=== PATIENT | female | born 1960 | race Caucasian/White ===

== ENCOUNTER 2023-02-17 13:47 | Outpatient (OUT) | payer OTHER, SELFPAY ==
--- NOTE | 2023-02-17 13:52 | MM_ITS ---
Patient Name: JCARLOS SMITH MR#: [id number] : 1960 Exam Date: 02/17/2023 Ordering Doctor: DR Darinel Gandhi . RADIOLOGY REPORT PROCEDURE: MM TOMOSYNTHESIS SCREENING BI COMPARISON: MG MAMM DX 3D RT CAD, 01/28/2022. MG MAMM SCREEN 3D LOLA CAD, 09/08/2021. MG MAMM SCREEN 3D LOLA CAD, 08/12/2020. MG MAMM SCREEN LOLA W CAD, 06/28/2019. INDICATIONS: Screening Calculator Name NCI Breast Cancer Risk Assessment Tool 5 Year Breast Cancer Risk Not Reported. Lifetime Breast Cancer Risk Not Reported. Personal Breast Cancer No Personal Ovarian Cancer No Treatments None Family Cancers None LOCATION: [facility] BREAST COMPOSITION: Extremely dense, which lowers the sensitivity of mammography. FINDINGS: DIAGNOSTIC CATEGORY 1--NEGATIVE. RIGHT BREAST: No significant suspicious finding. No significant change has occurred. LEFT BREAST: No significant suspicious finding. No significant change has occurred. RECOMMENDATIONS: ROUTINE MAMMOGRAM AND CLINICAL EVALUATION IN 12 MONTHS. PLEASE NOTE: A NORMAL MAMMOGRAM DOES NOT EXCLUDE THE POSSIBILITY OF BREAST CANCER. A CLINICALLY SUSPICIOUS PALPABLE LUMP SHOULD BE BIOPSIED. Dictated by: Humphrey Smith M.D. on 02/18/2023 at 11:38 Approved by: Humphrey Smith M.D. on 02/18/2023 at 11:40
== END 2023-02-17 13:48 | disposition home or self-care (01) ==
LOC: MAMMO 13:47
PROVIDERS: PCP Family Medicine; Visit Provider Obstetrics & Gynecology
DX: Z12.31 Encounter for screening mammogram for malignant neoplasm of breast (principal)
CPT/HCPCS: 77063; 77067

== ENCOUNTER 2023-06-08 10:57 | Outpatient (OUT) | payer OTHER, SELFPAY ==
--- NOTE | 2023-06-08 10:59 | US_ITS ---
The [address] [address] Patient Name: JCARLOS SMITH MRN: [id number] date: 1960 Sex: F Assigned Patient Location: US Current Patient Location: US Accession/Order Number: [id number] Exam Date: 06/08/2023 11:05 Report Date: 06/08/2023 12:22 At the request of: MIMA DARBY Procedure: US pelvis w/ transvaginal EXAMINATION: US pelvis w/ transvaginal HISTORY: complex ovarian cyst N83.299 COMPARISON: 02/03/2021 FINDINGS: Transabdominal and transvaginal images The uterus is normal in size, contour and echotexture, anteverted. Uterus measures 8.0 x 4.8 x 3.5 cm. Endometrium measures 3 mm, normal. Multiple areas of anechoic echogenicity and hypodensity in the cervix likely cysts and/or calcifications Soft tissue identified in the right adnexa measuring 5.7 x 3.2 x 3.4 cm, this contains vascular flow The left ovary measures 1.7 x 2.1 x 1.4 cm seen on transabdominal only images. No free fluid US/US pelvis w/ transvaginal IMPRESSION: 5.7 cm right adnexal soft tissue mass, grossly stable from the prior CT exam. Unknown etiology. Malignancy is not excluded Electronically authenticated by: KAISER YIP Date: 06/08/2023 12:22
[2023-06-08 13:13] LABS: Lactate Dehydrogenase 164 U/L (81-234)
[2023-06-09 04:07] LABS: AFP, Serum, Tumor Marker 6.4 ng/mL (0.0-9.2); CEA 0.9 ng/mL (0.0-4.7); Cancer Antigen (CA) 125 8.3 U/mL (0.0-38.1); HCG Tumor Marker <1 mIU/mL (.)
== END 2023-06-08 10:58 | disposition home or self-care (01) ==
LOC: US 10:57
PROVIDERS: PCP Family Medicine; Visit Provider Obstetrics & Gynecology
DX: N83.299 Other ovarian cyst, unspecified side (principal)
CPT/HCPCS: 36415; 76830; 76856; 82105; 82378; 83615; 84702; 86304

== ENCOUNTER 2023-07-13 15:22 | Outpatient (REF) | payer OTHER, SELFPAY | END 2023-07-13 15:23 | disposition home or self-care (01) | LOC: LAB 15:22 | PROVIDERS: PCP Family Medicine; Visit Provider Obstetrics & Gynecology | DX: N84.1 Polyp of cervix uteri (principal) | CPT/HCPCS: 88305 ==

== ENCOUNTER 2023-08-01 14:24 | Outpatient (OUT) | payer OTHER, SELFPAY ==
--- NOTE | 2023-08-01 14:30 | ECG_ITS ---
The [facility] [place] Test Date: 2023-08-01 Pat Name: JCARLOS SMITH Department: Room: - Gender: Female [employer]ber [employer] Tender: : 1960 Requested By: MIMA DARBY Order Number: [id number] Reading MD: LIZA VELÁZQUEZ Measurements Intervals [place] Rate: 67 P: 67 RI: 188 QRS: 72 QRSD: 93 T: 58 QT: 379 QTc: 403 Interpretive Statements SINUS RHYTHM Compared to ECG 05/17/2019 14:13:58 Sinus tachycardia no longer present Electronically Signed On 08-02-2023 18:01:42 EDT by LIZA VELÁZQUEZ
[2023-08-01 15:24] LABS: Basophils Percent Auto 0.6 % (0.2-2.0); Eosinophils Absolute Auto 0.1 10^3/uL (0.0-0.7); Hematocrit 37.2 % (36.0-48.0); Hemoglobin 12.3 g/dL (12.0-16.0); Lymphocytes Absolute Auto 2.2 10^3/uL (1.2-3.8); Mean Corpuscular HGB Conc 33.1 g/dL (29.9-35.2); Mean Corpuscular Volume 96.9 fL (81.0-99.0); Mean Platelet Volume 9.1 fL (9.5-13.5); Monocytes Absolute Auto 0.4 10^3/uL (0.3-0.8); Monocytes Percent Auto 7.3 % (1.7-12.0); Neutrophils Absolute Auto 2.3 10^3/uL (1.4-6.5); Neutrophils Percent Auto 46.1 % (43.0-75.0); Platelet Count 197 10^3/uL (150-450); Red Blood Count 3.84 10^6/uL (4.20-5.40); Red Cell Distribution Width 12.3 % (11.0-15.0); White Blood Count 4.9 10^3/uL (4.0-11.0)
[2023-08-01 15:41] LABS: INR 0.97; Prothrombin Time 10.3 sec (9.0-11.6)
[2023-08-01 15:48] LABS: Anion Gap 11.9; BUN Creatinine Ratio 23.9; Calcium 9.3 mg/dL (8.5-10.1); Carbon Dioxide 32.8 mmol/L (21.0-32.0); Chloride 103 mmol/L (98-107); Estimated GFR (African America >60 (>=60); Estimated GFR (Non-African Ame >60 (>=60); Glucose 128 mg/dL (74-106); Potassium 3.7 mmol/L (3.5-5.1); Sodium 144 mmol/L (136-145)
[2023-08-01 15:55] LABS: Alanine Aminotransferase 17 U/L (14-59); Albumin Globulin Ratio 1.2; Albumin Level 3.5 g/dL (3.4-5.0); Alkaline Phosphatase 65 U/L (46-116); Aspartate Amino Transferase 10 U/L (15-37); Bilirubin Direct 0.1 mg/dL (0.0-0.2); Bilirubin Total 0.2 mg/dL (0.2-1.0); Total Protein 6.5 g/dL (6.4-8.2)
== END 2023-08-01 14:25 | disposition home or self-care (01) ==
LOC: PST 14:24
PROVIDERS: PCP Family Medicine; Visit Provider Obstetrics & Gynecology
DX: Z01.810 Encounter for preprocedural cardiovascular examination (principal); Z01.812 Encounter for preprocedural laboratory examination; N92.0 Excessive and frequent menstruation with regular cycle; R10.2 Pelvic and perineal pain; N94.6 Dysmenorrhea, unspecified; N94.10 Unspecified dyspareunia; N94.89 Other specified conditions associated with female genital organs and menstrual cycle; N83.8 Other noninflammatory disorders of ovary, fallopian tube and broad ligament
CPT/HCPCS: 36415; 80048; 80076; 85025; 85610; 85730; 93005

== ENCOUNTER 2023-08-09 12:19 | Outpatient (OUT) | payer OTHER, SELFPAY | END 2023-08-09 12:20 | disposition home or self-care (01) | LOC: LAB 08-10 12:20 | PROVIDERS: PCP Family Medicine; Visit Provider Obstetrics & Gynecology | DX: Z01.812 Encounter for preprocedural laboratory examination (principal); N92.0 Excessive and frequent menstruation with regular cycle; R10.2 Pelvic and perineal pain; N94.6 Dysmenorrhea, unspecified; N94.10 Unspecified dyspareunia; N94.89 Other specified conditions associated with female genital organs and menstrual cycle; N83.9 Noninflammatory disorder of ovary, fallopian tube and broad ligament, unspecified | CPT/HCPCS: 36415; 86850; 86900; 86901 ==

== ENCOUNTER 2023-08-11 11:03 | Day surgery (SDC) | payer OTHER, SELFPAY ==
[2023-08-01 15:03] VITALS: BP 126/72; PULSE 80; TEMP 36.3; O2SAT 98; BMI 23.6
[2023-08-11] VITALS (12 sets, daily range): BP systolic 100–131; BP diastolic 52–72; PULSE 63–96; TEMP 35.6–36.4; O2SAT 92–98; BMI 22.6
[2023-08-11 11:37] LABS: Basophils Percent Auto 0.5 % (0.2-2.0); Eosinophils Absolute Auto 0.1 10^3/uL (0.0-0.7); Eosinophils Percent Auto 2.2 % (0.9-7.0); Hematocrit 40.7 % (36.0-48.0); Hemoglobin 13.1 g/dL (12.0-16.0); Immature Granulocytes Abs Auto 0.01 10^3/uL (0.00-0.03); Immature Granulocytes Pct Auto 0.2 % (0.0-0.5); Lymphocytes Absolute Auto 1.8 10^3/uL (1.2-3.8); Lymphocytes Percent Auto 44.9 % (20.5-60.0); Mean Corpuscular HGB Conc 32.2 g/dL (29.9-35.2); Mean Corpuscular Hemoglobin 31.2 pg (26.7-34.0); Mean Corpuscular Volume 96.9 fL (81.0-99.0); Mean Platelet Volume 9.2 fL (9.5-13.5); Monocytes Absolute Auto 0.4 10^3/uL (0.3-0.8); Neutrophils Absolute Auto 1.7 10^3/uL (1.4-6.5); Neutrophils Percent Auto 43.2 % (43.0-75.0); Platelet Count 195 10^3/uL (150-450); Red Cell Distribution Width 12.3 % (11.0-15.0)
[2023-08-11] MEDS: LACTATED RINGER'S SOLUTION 1,000 ML 50 ML IV ×2 (11:39→13:40)
[2023-08-11] MEDS: CEFAZOLIN SODIUM/DEXTROSE,ISO 2 GM/50 ML PIGGYBACK IV ×3 (12:41→23:03)
--- NOTE | 2023-08-11 15:42 | PM.ONB ---
Brief Operative Note Date of procedure: 08/11/23 Pre-op diagnosis general: rt adnexal mass, dysmenorrhea, dyspareunia, penduculated uterine fibroid Post-op diagnosis: same as pre-op Procedure: NAME OF PROCEDURE: ? Robotic assisted laparoscopic hysterectomy with cystoscopy, bilateral salpingoopherectomy PROCEDURE:? The patient was taken back to the operating room, where she was prepped and draped in the normal sterile fashion after being placed in the dorsal lithotomy position.? Patient?s anesthesia was found to be adequate.? Surgical timeout was performed using two patient identifiers.? SCDs were on and in place.? Two grams of Ancef were given prior to the surgery.? Sterile Bradshaw catheter was inserted.? Standard size VCare was secured to the uterine cervix and the surgeon changed gloves.? Attention then was turned to the patient's abdomen, where a supraumbilical incision was then made.? Two S retractors were used to identify the patient?s fascia.? The fascia was then tented up using Julee clamps and the patient?s fascia was incised sharply.? Patient?s abdomen was identified and entered bluntly.? The patient had the trocar placed and a pneumoperitoneum was obtained.? Approximately 4 liters of CO2 gas was used.? The camera was then placed through the trocar.? At this time, two robot trocars were placed in the patient?s left and right side, two hand widths from the midline, and this was placed under direct visualization.? The patient?s tube and ovary on the right side was tented up and the vessel sealer was then used to come across the mesosalpinx,and infundibular pelvic ligament and this was carried down to the uterine ovarian ligament.? The vessel sealer was carried down serially to the broad ligament, to the area of the bladder flap, which was then created anteriorly, and the uterine arteries were skeletonized and sealed using the vessel sealer. This was performed on the contralateral side as well. The colpotomy was made using the monopolar cautery on cut, and this was carried circumferentially, posteriorly to anteriorly, until the uterus was amputated.? The specimen was then removed intact through the vagina, without difficulty.? The vagina was then closed using two running V-Loc in a non-lock fashion.? The robot was undocked.? The abdomen was desufflated.? The skin defects were closed using 4-0 Vicryl.? Please note, the fascia was closed using 0 Vicryl.? Sponge, lap and needle counts were correct x2.? Patient was taken to recovery room in stable condition.? The patient was awakened by Anesthesia first.? Patient tolerated procedure well.??Please note left ovarian cystectomy was performed using the vessel sealer Anesthesia: BUDDY Surgeon: Darinel Gandhi [employer] Administrator: Trista Shaikh Estimated blood loss (mL): 100 Pathology: other (uterus tube and ovaries) Condition: stable Disposition: PACU Urinary Catheter Management Urinary Catheter Management Urethral: Cath placed during this visit: no
[2023-08-11] MEDS: LACTATED RINGER'S SOLUTION 1,000 ML 125 ML IV (16:03)
[2023-08-11 21:31] LABS: Hematocrit 39.6 % (36.0-48.0); Hemoglobin 12.8 g/dL (12.0-16.0); Mean Corpuscular HGB Conc 32.3 g/dL (29.9-35.2); Mean Corpuscular Hemoglobin 31.8 pg (26.7-34.0); Mean Corpuscular Volume 98.3 fL (81.0-99.0); Mean Platelet Volume 9.2 fL (9.5-13.5); Platelet Count 164 10^3/uL (150-450); Red Blood Count 4.03 10^6/uL (4.20-5.40); Red Cell Distribution Width 12.2 % (11.0-15.0); White Blood Count 8.9 10^3/uL (4.0-11.0)
[2023-08-11 22:02] LABS: Segmented Neut Absolute Manual 7.74 10^3/uL (1.4-6.5)
[2023-08-11 22:03] LABS: Atypical Lymphocytes Abs Man 0.08; Band Neutrophils Absolute 0.4 10^3/uL (0.0-0.3); Eosinophils Absolute Manual 0.08 10^3/uL (0.00-0.70); Lymphocytes Absolute Manual 0.53 10^3/uL (1.20-3.80); Monocytes Absolute Manual 0.08 10^3/uL (0.30-0.80)
--- NOTE | 2023-08-11 22:50 | PC.NURSE ---
Patient ambulated the halls and has no complaints of pain just some discomfort. Labs were looked at by consumer loan underwriter.
[2023-08-11] MEDS: IBUPROFEN 400 MG TABLET 800 MG PO (23:02)
--- NOTE | 2023-08-11 23:30 | PC.NURSE ---
Patient had large emesis of liquids 1000ml out. She was drinking a large amount to be able to void
[2023-08-12 00:10] VITALS: BP 103/61; PULSE 70; TEMP 36.6; O2SAT 95
== END 2023-08-12 00:16 | disposition home or self-care (01) ==
LOC: SURGOUT 15:55 → MS 17:02
PROVIDERS: PCP Family Medicine; Visit Provider Obstetrics & Gynecology
PROC: (CPT 840; principal; 2023-08-11 12:30)
DX: N94.10 Unspecified dyspareunia (principal); N94.89 Other specified conditions associated with female genital organs and menstrual cycle; N83.8 Other noninflammatory disorders of ovary, fallopian tube and broad ligament; N92.0 Excessive and frequent menstruation with regular cycle; R10.2 Pelvic and perineal pain; N94.6 Dysmenorrhea, unspecified; N72 Inflammatory disease of cervix uteri; N88.8 Other specified noninflammatory disorders of cervix uteri; D25.9 Leiomyoma of uterus, unspecified; Z78.0 Asymptomatic menopausal state
CPT/HCPCS: 58571; 36415; 85007; 85025; 85027; 88305; 88307; 94667; J1094; J1170; J2704

== ENCOUNTER 2024-02-21 09:54 | Outpatient (OUT) | payer OTHER, SELFPAY ==
--- NOTE | 2024-02-21 09:58 | MM_ITS ---
Patient Name: JCARLOS SMITH MR#: [id number] : 1960 Exam Date: 02/21/2024 Ordering Doctor: DR Darinel Gandhi . RADIOLOGY REPORT PROCEDURE: MM TOMOSYNTHESIS SCREENING BI COMPARISON: MG MAMM DX 3D RT CAD, 01/28/2022. MM TOMOSYNTHESIS SCREENING BI, 02/17/2023. INDICATIONS: Screening Calculator Name NCI Breast Cancer Risk Assessment Tool 5 Year Breast Cancer Risk Not Reported. Lifetime Breast Cancer Risk Not Reported. Personal Breast Cancer No Personal Ovarian Cancer No Treatments None Family Cancers None LOCATION: [facility] BREAST COMPOSITION: The breasts are extremely dense, which lowers the sensitivity of mammography. FINDINGS: DIAGNOSTIC CATEGORY 1--NEGATIVE. NO CHANGE FROM COMPARISON ASSESSMENT. Scattered benign-appearing calcifications are present. Scattered benign-appearing lymph nodes are present. RIGHT BREAST: No significant suspicious finding. LEFT BREAST: No significant suspicious finding. RECOMMENDATIONS: ROUTINE MAMMOGRAM AND CLINICAL EVALUATION IN 12 MONTHS. PLEASE NOTE: A NORMAL MAMMOGRAM DOES NOT EXCLUDE THE POSSIBILITY OF BREAST CANCER. A CLINICALLY SUSPICIOUS PALPABLE LUMP SHOULD BE BIOPSIED. Dictated by: Salo Whitfield MD on 02/21/2024 at 13:09 Approved by: Salo Whitfield MD on 02/21/2024 at 13:10
== END 2024-02-21 09:55 | disposition home or self-care (01) ==
LOC: MAMMO 09:54
PROVIDERS: PCP Family Medicine; Visit Provider Obstetrics & Gynecology
DX: Z12.31 Encounter for screening mammogram for malignant neoplasm of breast (principal)
CPT/HCPCS: 77063; 77067

== ENCOUNTER 2025-02-22 07:53 | Outpatient (OUT) | payer OTHER, SELFPAY ==
--- OUTSIDE RECORDS SUMMARY | 2025-02-22 07:56 | XMS_ITS | Clinical Summary ---
Author Organization [facility] [facility] tem Address [id number] [address] [place] [address] Care Team Providers Care Religious Healer Name Role Phone Unavailable Primary Care Provider Unavailabl e Allergies No known active allergies Medications No known medications Active Problems ProblemNoted DateDiagnosed DateAtrophic jrgabnfso07/18/3065Livzrbtdad22/18/2021 Pelvic mass02/26/2021 Social History Tobacco UseTypesPacks/DayYears UsedDateSmoking Tobacco: Never AssessedChildcare AnswerDate UnzklchhRfkucnigaIybgibw23/12/2019EmploymentAnswerDate Recorded VwdqtckruoHpjbcnx03/12/2019CommentsUnknownSex and Gender Information ValueDate RecordedSex Assigned at BirthNot on fileLegal MavLyzzim57/06/2015 11:56 AM EDTGender IdentityNot on fileSexual OrientationNot on file Last Filed Vital Signs Vital SignReadingTime TakenCommentsBlood Vowlpvqn892/7002/26/2021 10:04 AM EST Pulse--Owxdapdpfkd91.4 ??C (97.6 ??F)02/26/2021 10:04 AM ESTRespiratory Rate-- Oxygen Saturation--Inhaled Oxygen Concentration--Dxxaiu26.9 kg (163 lb) 02/26/2021 10:04 AM ESTHeight--Body Mass Index-- Plan of Treatment Health MaintenanceDue DateLast DoneCommentsDepression Nkrhiwtrm48/28/1972Tobacco Fjoskoenl47/28/1972Adult BMI Celalnrro83/28/1978Zoster (Shingles) Vaccine (1 of 2)10/06/2009DTaP,Tdap and Td Vaccines (1 - Tdap)/05/2010Fall Risk Wwefpkndi48/28/2025Influenza Khovqnk1412/10/2024RSV ( or age 60+ yrs) (1 - 1-dose 75+ series)10/06/2034 Medical Devices Not on file Insurance
--- OUTSIDE RECORDS SUMMARY | 2025-02-22 07:56 | XMS_ITS | Clinical Summary ---
Author Organization [facility] Address [address] [place] [address] Care Team Providers Care Engagement Executive Name Role Phone Puneet Allen MD Primary Care Provider [phone] Allergies No known active allergies Medications MedicationSigDispense QuantityRefillsLast FilledStart DateEnd DateStatus calcium citrate 1040 MG tablet Take 1 tablet by mouth in the morning.Active Cholecalciferol (VITAMIN D-3 PO) Take by mouth DailyActive Azelastine HCl 137 MCG/SPRAY solution Indications:Chronic eustachian salpingitis of both earsUSE 2 SPRAYS IN AFFECTED NOSTRILS ONCE IN THE MORNING AND BEFORE BEDTIME 30 mL 1115Active Active Problems ProblemNoted DateDiagnosed DateBody mass index (BMI) 22.0-22.9, adult02/15/2023 Chronic eustachian salpingitis of both ears02/10/2023Non-seasonal allergic yowhoblw44/02/2023Vitamin D zuvgguekvu64/02/1897Pmswstdaqd35/18/2021 Resolved Problems ProblemNoted DateDiagnosed DateResolved DateMass of uterine gxiykb6806/16/2023 01/02/2025Mass of right ovaryEncounter to discuss test fpbcqyg88 Encounters DateTypeDepartmentCare UrxmSrondttjout82/08/2025Refill [facility] [place] [address] [phone] Puneet Allen MD Chronic eustachian salpingitis of both ears01/09/2025 1:45 PM EDTOffice Visit [facility] [place] [facility] [address] [facility] [address] [place] [address] Puneet Allen MD Chronic eustachian salpingitis of both ears; Acute actinic otitis externa of left ear01/09/2025amboo flowsheet [facility] [place] [facility] [address] [address] [place] [address] Puneet Allen MD 01/09/20254993Kfytpd88/24/2025 10:30 AM EDTOffice Visit [facility] [place] 100 [facility] [address] [address] [place] [address] Puneet Allen MD Encounter for wellness examination in adult (Primary Dx); Advance directive in chart; Screening for diabetes mellitus (DM); Encounter for lipid screening for cardiovascular disease; Screening for osteoporosis; Osteopenia, unspecified location; Menopause; Screening mammogram, encounter for01/02/2025amb flowsheet [facility] [place] [facility] [address] [address] [place] [address] Puneet Allen MD 01/02/20256522Laqpdu00/18/2025 4:00 PM EDTOffice Visit [facility] [place] 100 [facility] [address] [address] [place] [address] Puneet Allen MD Acute actinic otitis externa of left ear (Primary Dx); Dysfunction of both eustachian tubes12/27/2024amboo flowsheet [facility] [place] [address] [address] [place] [address] Puneet Allen MD 12/27/20243892Jlwplg74/11/2025Telephone [facility] [place] [address] [address] [place] [address] Vikki July, Care Fffqdlodkvgi40/19/2025Telephone [facility] [place] [address] [address] [place] [address] Vikki July, Care Coordinationfrom Last 3 Months Immunizations ImmunizationAdministration DatesNext DueTd (adult), 5 Lf tetanus toxoid, preservative free, aqaviezb57/02/2011 Family History Medical HistoryRelationNameCommentsAtrial fibrillationBrother 1Heart disease Brother 1A Fib , enlarged descending aorta and he has a bicuspid valve where is tricuspid valve shoud bebicuspid valveBrother 1No Known ProblemsBrother 2 DiabetesFatherRelationNameStatusCommentsBrother 1Brother 2FatherAliveMotherAlive Social History Tobacco UseTypesPacks/DayYears UsedDateSmoking Tobacco: NeverSmokeless Tobacco: Never Tobacco Cessation:Counseling Given: Yes Alcohol UseStandard Drinks/WeekCommentsNot Currently0 (1 standard drink = 0.6 oz pure alcohol)Social Connection and Isolation PanelAnswerDate RecordedIn a typical week, how many times do you talk on the phone with family, friends, or neighbors?Patient wrgkpexj24/30/2024How often do you get together with friends or relatives?Patient fteekrve79/30/2024How often do you attend mandaeism or tenriism services?Patient /30/2024o you belong to any clubs or organizations such as mandaeism groups, unions, fraternal or athletic groups, or school groups?Patient wjuyquvb56/30/2024How often do you attend meetings of the clubs or organizations you belong to?Patient novwxyaf14/30/2024re you , , , , never , or living with a partner?Patient urculpvc98/30/2024UDIT-CAnswerDate RecordedQ1: How often do you have a drink containing alcohol?Patient tulaqswp71/30/2024Q2: How many drinks containing alcohol do you have on a typical day when you are drinking?Patient declined 10/09/2023Q3: How often do you have six or more drinks on one occasion?Patient /30/2024Overall Financial Resource Strain (CARDIA)AnswerDate Recorded How hard is it for you to pay for the very basics like food, housing, medical care, and heating?Patient /30/2024HQ-2AnswerDate RecordedPatient Health Questionnaire-2 Jdnfw616Finencompass health [facility] - Occupational Stress QuestionnaireAnswerDate RecordedDo you feel stress - tense, restless, nervous, or anxious, or unable to sleep at night because your mind is troubled all the time - these days?Patient bivicfte16/30/2024Exercise Vital SignAnswerDate RecordedOn average, how many days per week do you engage in moderate to strenuous exercise (like a brisk walk)?Patient /30/2024On average, how many minutes do you engage in exercise at this level?Patient eeojqawg73/30/2024Hunger Vital SignAnswerDate RecordedWithin the past 12 months, you worried that your food would run out before you got the money to buymore. Patient lsauntlc65/30/2024Within the past 12 months, the food you bought just didn't last and you didn't have money to get more.Patient zsakbddb56/30/2024 PRAPARE - TransportationAnswerDate RecordedIn the past 12 months, has lack of transportation kept you from medical appointments or from getting medications? Patient eyotudjh31/30/2024In the past 12 months, has lack of transportation kept you from meetings, work, or from getting things needed for daily living?Patient lspoxpid99/30/2024Housing Stability Vital SignAnswerDate RecordedIn the last 12 months, was there a time when you were not able to pay the mortgage or rent on time?Patient uukhsdit26/30/2024Number of Times Moved in the Last YearNot on file 10/09/2023t any time in the past 12 months, were you homeless or living in a intermediate (including now)?Patient cljmxose09/30/2024CommentsNoSex and Gender InformationValueDate RecordedSex Assigned at BirthNot on fileLegal Sex Rqghfx0006/23/2022 6:36 PM EDTGender IdentityNot on fileSexual OrientationNot on file Last Filed Vital Signs Vital SignReadingTime TakenCommentsBlood Nihmujpu061/7206 11:33 AM EDT Oicns9410 2:04 PM ZWGMcegkrwrril11.4 ??C (76 ??F)01/02/2025 10:30 AM EDT Respiratory Rate--Oxygen Gfqmdffanu74%01/02/2025 10:30 AM EDTInhaled Oxygen Concentration--Qtlvmu66.3 kg (166 lb)01/02/2025 10:30 AM EHAMmkney508.3 cm (5' 11 )01/02/2025 10:30 AM EDTBody Mass Index23.15001/02/2025 10:30 AM EDT Plan of Treatment Health MaintenanceDue DateLast DoneCommentsCT Ghuiewkwtirh10/28/1960FIT-DNA 1959FIT1960FOBT1960 3212Comyfqrwmxats32/28/1960COVID-19 Vaccine ( season)/, 12/12/20205116Kimyjjgvh00, 02/18/2023, 01/28/2022, Additional history existsInfluenza Vaccine (#1) 10/08/2025Postponed from 12/10/2024 (Patient Refused)Pneumococcal Vaccine: 65+ Years (1 of 1 - PCV)12/20/2025Postponed from 10/06/2009 (Patient Refused) Cervical Cancer Juhlpidzg44/11/2027HPV/Iwikbt17ap Smear 2ColonoscopyColorectal Cancer Screening 06/21/2027 Procedures Procedure NamePriorityDate/TimeAssociated DiagnosisCommentsLIPID PANELRoutine 01/02/2025 11:05 AM EDT Encounter for wellness examination in adult Encounter for lipid screening for cardiovascular disease COMPREHENSIVE METABOLIC KFHYYOftpmfs11/24/2025 11:05 AM EDT Encounter for wellness examination in adult Screening for diabetes mellitus (DM) MM TOMOSYNTHESIS SCREENING BI02/21/2024 1:10 PM EST PAP XPAGNQmvjkdr25/11/2022 12:00 AM GZKXBLSDKVUERKGyyqkwt02/12/2018 12:00 PM EDT Encounter for screening for malignant neoplasm of colon Encounter for screening for lipoid disorders Other specified counseling Encounter for screening for diabetes mellitus Encounter for general adult medical examination without abnormal findings Body mass index (BMI) 22.0-22.9, adult from Last 3 Months or Most Recently Relevant to Health Maintenance Results * (ABNORMAL) Lipid panel (01/02/2025 11:05 AM EDT)ComponentValueRef RangeTest MethodAnalysis TimePerformed AtPathologist SignatureCHOLESTEROL, LLPBU116(H) <200 mg/dLQUESTHDL KLEWPKNXPMB84> OR = 50 mg/vCSXUXWHTANDTDNGHIUY71<150 mg/dL QUESTLDL XGRBKUIAXLA249(H)mg/dL (calc)QUESTComment: Reference range: <100 Desirable range <100 mg/dL for primary prevention; <70 mg/dL for patients with CHD or diabetic patients with > or = 2 CHD risk factors. LDL-C is now calculated using the Tanvi calculation, which is a validated novel method providing better accuracy than the Friedewald equation in the estimation of LDL-C. Hans SS et al. MARGARITA. 2013;310(19): 2246-3155 (http://education.TriCipher.Clear2Pay/faq/MMP052) CHOL/HDLC RATIO3.2<5.0 (calc)QUESTNON HDL SIHLASDLWML932(H)<130 mg/dL (calc) QUESTComment: For patients with diabetes plus 1 major ASCVD risk factor, treating to a non-HDL-C goal of <100 mg/dL (LDL-C of <70 mg/dL) is considered a therapeutic option. Specimen (Source)Anatomical Location / LateralityCollection Method / Volume Collection TimeReceived TimeBloodVenous blood specimen / Ocybdsv1801/02/2025 11:05 AM EDT01/02/2025 11:06 AM EDT Narrative QUEST - 01/03/2025 6:36 AM EDT FASTING:YES FASTING: YES Resulting Agency Comment Performing Organization Information ?Site ID: QPT ?Name: [employer] [facility] ?Address: [address] [place] [address], [address] [place] [phone] ?Director: Deng Kaba MD Authorizing ProviderResult TypeResult StatusEdarcadio Allen MDLAB BLOOD ORDERABLESFinal ResultPerforming OrganizationAddressCity/State/ZIP CodePhone Number QUEST * (ABNORMAL) Comprehensive metabolic panel (01/02/2025 11:05 AM EDT)Component ValueRef RangeTest MethodAnalysis TimePerformed AtPathologist SignatureGlucose 105(H)65 - 99 mg/dLQUESTComment: ? Fasting reference interval For someone without known diabetes, a glucose value between 100 and 125 mg/dL is consistent with prediabetes and should be confirmed with a follow-up test. RDS838 - 25 mg/dLQUESTCreatinine0.750.50 - 1.05 mg/hXLDXZPWYZY43> OR = 60 mL/min/1.95g4NRBBVFVM/CREATININE RATIOSEE NOTE: - (calc)QUESTComment: ?? Not Reported: BUN and Creatinine are within ?? reference range. ? Vemypv764351 - 146 mmol/LQUESTPotassium, Bld4.33.5 - 5.3 mmol/VRQJPTJqpumrue484 98 - 110 mmol/LQUESTCarbon Wpxmtsf4932 - 32 mmol/LQUESTCalcium9.48.6 - 10.4 mg/dLQUESTPROTEIN, TOTAL6.76.1 - 8.1 g/dLQUESTALBUMIN4.23.6 - 5.1 g/dLQUEST GLOBULIN2.51.9 - 3.7 g/dL (calc)QUESTALBUMIN/GLOBULIN RATIO1.71.0 - 2.5 (calc) QUESTBILIRUBIN, TOTAL0.60.2 - 1.2 mg/dLQUESTALKALINE ZKIHMFZZTEI9177 - 153 U/L OGPTGDHG0742 - 35 U/KZAZKSTVL688 - 29 U/LQUESTSpecimen (Source)Anatomical Location / LateralityCollection Method / VolumeCollection TimeReceived TimeBlood Venous blood specimen / Yubeuop0601/02/2025 11:05 AM EDT01/02/2025 11:06 AM EDT Narrative [facility]ST - 01/03/2025 6:36 AM EDT FASTING:YES FASTING: YES Resulting Agency Comment Performing Organization Information ?Site ID: QPT ?Name: [employer] [facility] ?Address: [address] [place] [address], [address] [place] [phone] ?Director: Deng Kaba MD Authorizing ProviderResult TypeResult StatusEdward J Hemeyer MDLAB BLOOD ORDERABLESFinal ResultPerforming OrganizationAddressCity/State/ZIP CodePhone Number QUEST * MM TOMOSYNTHESIS SCREENING BI (02/21/2024 1:10 PM EST)Anatomical Region LateralityModalityOtherSpecimen (Source)Anatomical Location / Laterality Collection Method / VolumeCollection TimeReceived Time02/21/2024 1:10 PM EST Narrative 02/21/2024 1:11 PM EST [facility] ?[address] ? [place] [address] ? Mammography Report ? Signed ? Patient: LUIS,DEANA L ?MR#: [id number] ?? : 1960 ?Acct:[id number] ?? Age/Sex: 63 / F ?ADM Date: 02/21/24 ?? Loc: MAMMO ? Attending Dr: Darinel Gandhi D.O. ? Ordering Physician: Darinel Gandhi D.O. ?Results: ? Date of Service: 02/21/24 ?Follow Up: ? Procedure(s): MM tomosynthesis screening BI ?? Accession Number(s): [id number] ? cc: Darinel Gandhi D.O.; PUNEET ALLEN ? Patient Name: ? DEANA SMITH ? MR#: [id number] ? : 1960 ? Exam Date: 02/21/2024 ?? Ordering Doctor: DR Darinel Gandhi . ? RADIOLOGY REPORT ? PROCEDURE: ? MM TOMOSYNTHESIS SCREENING BI ? COMPARISON: ? MG MAMM DX 3D RT CAD, 01/28/2022. ??MM TOMOSYNTHESIS SCREENING ?? BI, 02/17/2023. ? INDICATIONS: ? Screening ? Calculator Name ? NCI Breast Cancer Risk Assessment Tool ?? 5 Year Breast Cancer Risk ? Not Reported. ?? Lifetime Breast Cancer Risk ? Not Reported. ?? Personal Breast Cancer ?No ?? Personal Ovarian Cancer ? No ?? Treatments ? None ?? Family Cancers ? None ? LOCATION: ? [facility] ? BREAST COMPOSITION: ? The breasts are extremely dense, which lowers the ?? sensitivity of mammography. ? FINDINGS: ? DIAGNOSTIC CATEGORY 1--NEGATIVE. NO CHANGE FROM COMPARISON ASSESSMENT. ? Scattered benign-appearing calcifications are present. ??Scattered ?? benign-appearing lymph nodes are present. ? RIGHT BREAST: ??No significant suspicious finding. ? LEFT BREAST: ??No significant suspicious finding. ? RECOMMENDATIONS: ? ROUTINE MAMMOGRAM AND CLINICAL EVALUATION IN 12 MONTHS. ? PLEASE NOTE: ??A NORMAL MAMMOGRAM DOES NOT EXCLUDE THE POSSIBILITY OF BREAST ?? CANCER. ??A CLINICALLY SUSPICIOUS PALPABLE LUMP SHOULD BE BIOPSIED. ? Dictated by: Salo Whitfield MD on 02/21/2024 at 13:09 ? Approved by: Salo Whitfield MD on 02/21/2024 at 13:10 ? Dictated By: ?Salo Whitfield M.D. ? Signed By: ?02/21/24 1311 ? DD/ 1310 ? TD/TT: ? 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 Ordering Physician: Darinel Gandhi D.O.Results: Date of Service: 02/21/24Follow Up: Procedure(s): MM tomosynthesis screening BI Accession Number(s): [id number] cc: Darinel Gandhi D.O.; PUNEET ALLEN Patient Name: DEANA SMITH MR#: [id number] : 1960 Exam Date: 02/21/2024 Ordering Doctor: DR Darinel Gandhi . RADIOLOGY REPORT PROCEDURE: MM TOMOSYNTHESIS SCREENING BI COMPARISON: MG MAMM DX 3D RT CAD, 01/28/2022. MM TOMOSYNTHESISSCREENING BI, 02/17/2023. INDICATIONS: Screening Calculator Name NCI Breast Cancer Risk Assessment Tool 5 Year Breast Cancer Risk Not Reported. Lifetime Breast Cancer Risk Not Reported. Personal Breast Cancer No Personal Ovarian Cancer No Treatments None Family Cancers None LOCATION: [facility] BREAST COMPOSITION: The breasts are extremely dense, which lowers the sensitivity of mammography. FINDINGS: DIAGNOSTIC CATEGORY 1--NEGATIVE. NO CHANGE FROM COMPARISON ASSESSMENT. Scattered benign-appearing calcifications are present. Scattered benign-appearing lymph nodes are present. RIGHT BREAST: No significant suspicious finding. LEFT BREAST: No significant suspicious finding. RECOMMENDATIONS: ROUTINE MAMMOGRAM AND CLINICAL EVALUATION IN 12 MONTHS. PLEASE NOTE: A NORMAL MAMMOGRAM DOES NOT EXCLUDE THE POSSIBILITY OFBREAST CANCER. A CLINICALLY SUSPICIOUS PALPABLE LUMP SHOULD BE BIOPSIED. Dictated by: Salo Whitfield MD on 02/21/2024 at 13:09 Approved by: Salo Whitfield MD on 02/21/2024 at 13:10 Dictated By: Salo Whitfield M.D. Signed By:02/21/24 1311 DD/ 1310 TD/TT: [employer] Drawer In: Authorizing ProviderResult TypeResult StatusGeneric External Data Provider CLINISYNC IMAGINGFinal Result * Pap Smear (01/19/2022 12:00 AM EDT)Specimen (Source)Anatomical Location / LateralityCollection Method / VolumeCollection TimeReceived TimeSwabCervical swab / Unknown Narrative Authorizing ProviderResult TypeResult StatusCorey Oksana DOLAB CYTOLOGY ORDERABLESFinal ResultPerforming OrganizationAddressCity/State/ZIP CodePhone Number EXTERNAL LAB * Colonoscopy (06/20/2017 12:00 PM EDT)Anatomical RegionLateralityModality EndoscopySpecimen (Source)Anatomical Location / LateralityCollection Method / VolumeCollection TimeReceived Time06/20/2017 12:00 PM EDT Narrative 06/20/2017 12:00 PM EDT PERFORMED AT [facility] LOCATION:[id number] internal hemmorhoids, repeat 7-10years Procedure Note CONVERSION, GENERIC - 08/25/2022 PERFORMED AT [facility] LOCATION:[id number] internal hemmorhoids, repeat 7-10years Authorizing ProviderResult TypeResult StatusJennifer A Rohrbacher NPENDOSCOPY PROCEDURE ORDERABLESFinal Result from Last 3 Months or Most Recently Relevant to Health Maintenance Insurance Advance Directives TypeDate RecordedPatient RepresentativeExplanationAdvance Directives and Living Will Living WillAdvance Directives and Living Will11/09/2021 2021-02-06 Statutory Form Power Of AttorneyAdvance Directives and Living Will Power Of Senior Security Architect Care Teams Team MemberRelationshipSpecialtyStart DateEnd Date Puneet Allen MD [address] [place] [address] PCP - GeneralFamily Medicine08/17/22
--- NOTE | 2025-02-22 08:28 | MM_ITS ---
Patient Name: JCARLOS SMITH MR#: [id number] : 1960 Exam Date: 02/22/2025 Ordering Doctor: DR SAPNA ALLEN . RADIOLOGY REPORT PROCEDURE: MM TOMOSYNTHESIS SCREENING BI COMPARISON: MM TOMOSYNTHESIS SCREENING BI, 02/21/2024. MM TOMOSYNTHESIS SCREENING BI, 02/17/2023. MG MAMM LOLA SCRN W CAD DIG, 06/17/2014. INDICATIONS: Screening Calculator Name NCI Breast Cancer Risk Assessment Tool 5 Year Breast Cancer Risk 1.70% Lifetime Breast Cancer Risk 6.30% Personal Breast Cancer No Personal Ovarian Cancer No Treatments None Family Cancers Grandfather-maternal with brain cancer at age ~80. LOCATION: [facility] BREAST COMPOSITION: The breasts are extremely dense, which lowers the sensitivity of mammography. FINDINGS: RIGHT BREAST: No significant suspicious finding. Benign appearing calcifications are present. LEFT BREAST: No significant suspicious finding. DIAGNOSTIC CATEGORY 2--BENIGN FINDING. NO CHANGE FROM COMPARISON. RECOMMENDATIONS: ROUTINE MAMMOGRAM AND CLINICAL EVALUATION IN 12 MONTHS. Dictated by: Maciel Adair MD on 02/22/2025 at 10:45 Approved by: Maciel Adair MD on 02/22/2025 at 10:49
== END 2025-02-22 07:54 | disposition home or self-care (01) ==
LOC: MAMMO 07:54
PROVIDERS: PCP Family Medicine; Visit Provider Family Medicine
DX: Z00.00 Encounter for general adult medical examination without abnormal findings (principal); Z12.31 Encounter for screening mammogram for malignant neoplasm of breast; Z13.820 Encounter for screening for osteoporosis; M85.80 Other specified disorders of bone density and structure, unspecified site; Z78.0 Asymptomatic menopausal state; Z80.8 Family history of malignant neoplasm of other organs or systems; M85.88 Other specified disorders of bone density and structure, other site
CPT/HCPCS: 77063; 77067; 77080